=== PATIENT | female | born 1945 | race Caucasian/White ===

== ENCOUNTER → 2021-04-28 | Outpatient (CLI) | payer MEDICARE | END | disposition home or self-care (01) | LOC: CFH 08:39 | PROVIDERS: ATTEND Internal Medicine Cardiovascular Disease | DX: I08.0 Rheumatic disorders of both mitral and aortic valves (principal); R01.1 Cardiac murmur, unspecified; R07.89 Other chest pain | CPT/HCPCS: 93306 ==